=== PATIENT | male | born 1985 | race Two or more races ===

== ENCOUNTER 2021-04-25 23:22 | Inpatient (IN) | payer BC ==
[~2021-04-25] VITALS: Ht 152.4 cm; Wt 185.0 kg
[2021-04-25] MEDS ORDERED: FLONASE16 GM (23:39)
[2021-04-28] MEDS ORDERED: AMOX1TAB5 PO (13:42)
[2021-04-28] MEDS ORDERED: ULTRACET PO (13:42)
== END 2021-04-28 16:44 | disposition home or self-care (01) | DRG 343 ==
LOC: ER 23:22 → SEC-K 04-26 07:39 → O/R 04-26 13:36 → SURG 04-26 14:28
PROVIDERS: ADMIT Surgery; ATTEND Surgery
PROC: 0WJG4ZZ Inspection of Peritoneal Cavity, Percutaneous Endoscopic Approach (ICD-10-PCS; 2021-04-26)
PROC: BW21YZZ Computerized Tomography (CT Scan) of Abdomen and Pelvis using Other Contrast (ICD-10-PCS; 2021-04-26)
PROC: 0DTJ0ZZ Resection of Appendix, Open Approach (ICD-10-PCS; principal; 2021-04-26 12:45)
DX: K35.890 Other acute appendicitis without perforation or gangrene (principal); R10.9 Unspecified abdominal pain; Z20.822 Contact with and (suspected) exposure to COVID-19